=== PATIENT | male | born 2000 | race Caucasian/White ===

== ENCOUNTER 2021-07-30 10:43 | Emergency (ER) | payer OTHER ==
[~2021-07-30] VITALS: Ht 175.3 cm; Wt 88.6 kg
[2021-07-30 10:51] VITALS: BP 137/62
== END 2021-07-30 12:17 | disposition home or self-care (01) ==
LOC: M ED 10:43
DX: S83.92XA Sprain of unspecified site of left knee, initial encounter (principal); M25.461 Effusion, right knee; V49.40XA Driver injured in collision with unspecified motor vehicles in traffic accident, initial encounter; Y92.410 Unspecified street and highway as the place of occurrence of the external cause; Y93.9 Activity, unspecified; Y99.9 Unspecified external cause status